=== PATIENT | female | born 1945 | race Caucasian/White ===

== ENCOUNTER 2019-12-16 06:00 | Outpatient (RCR) | payer MEDICARE, MEDICAID, SELFPAY | END 2020-01-12 23:59 | disposition home or self-care (01) | LOC: TPT 06:00 | PROVIDERS: Family Provider Family Medicine; PCP Family Medicine; Referring Provider Family Medicine; Visit Provider Family Medicine | DX: M54.5 Low back pain (principal) | CPT/HCPCS: 97110; 97161; 97530; G0283 ==

== ENCOUNTER 2020-01-22 18:14 | Emergency (ER) | payer MEDICARE, MEDICAID, SELFPAY ==
[2020-01-22 18:21] VITALS: BP 136/77; PULSE 80; RESP 18; TEMP 37.1; O2SAT 94; BMI 25.0
--- NOTE | 2020-01-22 18:41 | W.ED.BACK ---
HPI - Back Pain/Injury General: Chief Complaint: Back Pain/Injury Stated Complaint: LOWER BACK PAIN Time Seen by Provider: 01/22/20 18:21 History of Present Illness: HPI Narrative: Patient complains of back pain chronic times last few years she had and today she bent down to feed her cat and she felt a pain in her back and she had a hard time standing up. Says it it hurts in her low back lumbar area and radiates out to the right. Hurts to stand up to walk to lift anything. She called ambulance today to come bring her in. Says she needs some pain medicine. Has never had x-rays. Has had a shot of steroid from Dr. Isaac chin in [facility]. MD elicited complaint: back pain Pertinent past history: prior back pain Onset (ago): hour(s) Timing: constant Severity: moderate Similar Symptoms Previously: Yes Quality: sharp Location: lumbar spine Radiation: other (Right flank area) Exacerbating factors: movement, walking and lifting Relieving factors: immobilization Context: turning/twisting Associated symptoms: Reports no associated symptoms; Deny abdominal pain, chills, fever(s), nausea or vomiting Treatments prior to arrival: NSAIDS, acetaminophen and prescription analgesics Review of Systems Const: Denies: fever, chills or body aches Eyes: Denies: change in vision or blurry vision ENMT: Denies: throat pain or nasal congestion Card: Denies: chest pain or shortness of breath on exertion Resp: Denies: shortness of breath, productive cough or non-productive cough GI: Denies: abdominal pain, nausea or vomiting Musc: Reports: back pain; Denies: extremity pain Skin/Breast: Denies: rash Neuro: Denies: headache Psych: Denies: anxiety or depression Joseph/Lymph: Denies: easy bruising PFSH ED PFSH: Social History Smoking and tobacco status: former smoker Physical Exam Const: COMMON NORMALS: no apparent distress, average body habitus and oriented x3 HENMT: COMMON NORMALS: normocephalic HEAD & SCALP: normal to inspection and normocephalic FACE & SINUS: normal facial exam Eye: COMMON NORMALS: conjunctivae normal GENERAL EYE: normal appearance of both eyes CONJUNCTIVA: Yes conjunctivae normal Neck/C-Spine: COMMON NORMALS: no JVD Chest: COMMONS NORMALS: inspection of chest normal Resp: COMMON NORMALS: normal respiratory effort and clear to auscultation bilaterally AUSCULTATION: clear to auscultation bilaterally Cardio: COMMON NORMALS: no JVD, regular rate and regular rhythm RATE: regular rate RHYTHM: regular rhythm GI: COMMON NORMALS: normal to inspection, nondistended, normoactive bowel sounds Back/Pelvis: LUMBAR SPINE/LOWER BACK: Yes normal to inspection, Yes pain with ROM, No lumbar spinal tenderness and Yes straight leg raise positive right Extremity: COMMON NORMALS: normal to inspection and full ROM Neuro: COMMON NORMALS: oriented x3 Course Vital Signs: Vital signs: Vital Signs Temperature 98.7 F 01/22/20 18:21 Pulse Rate 80 01/22/20 18:21 Respiratory Rate 18 01/22/20 18:21 Blood Pressure 136/77 01/22/20 18:21 Pulse Oximetry 94 01/22/20 18:21 Coding Level of Care Code ED [employer]ation Supervisor for Carrie Boles
--- NOTE | 2020-01-22 18:49 | XRR_ITS ---
PROCEDURE INFORMATION: Exam: XR Lumbosacral Spine, 2 or 3 Views Exam date and time: 01/22/2020 7:31 PM Age: 74 years old Clinical indication: Low back pain; Additional info: Pain/injury TECHNIQUE: Imaging protocol: XR of the lumbosacral spine, 2 or 3 views. COMPARISON: CR Hip 2-3v RIGHT wwo Pelv* [id number] 08/03/2019 3:39 PM FINDINGS: Vertebrae: Grade 1 anterior non-spondylitic spondylolisthesis of L4 on L5 with central spinal stenosis and prominent facet degenerative changes. Low density bone consistent with osteopenia/osteoporosis. Partial sacralization of the left portion of L5 with unilateral left-sided articulation which can be a source of chronic low back pain. Vasculature: Calcification of the abdominal aorta and/or iliac arteries consistent with atherosclerotic vessel disease. Soft tissues: Normal. XR/XR lumbar spine 2-3V* [id number] IMPRESSION: 1. Grade 1 anterior non-spondylitic spondylolisthesis of L4 on L5 with central spinal stenosis and prominent facet degenerative changes. 2. Low density bone consistent with osteopenia/osteoporosis. 3. Partial sacralization of the left portion of L5 with unilateral left-sided articulation which can be a source of chronic low back pain. 4. No acute findings. 5. If pain persists, CT may be helpful to rule out occult pathology if clinically indicated.
[2020-01-22] MEDS: orphenadrine 30 mg/mL Inj 2 mL 60 MG IM (19:06)
[2020-01-22] MEDS: ketorolac 60 mg/2 mL INJ IM (19:07)
[2020-01-22 19:15] VITALS: BP 128/84; PULSE 84; RESP 18; O2SAT 93
[2020-01-22] MEDS: HYDROcodone-acetaminophen 5-325 mg Tablet 1 TAB PO (20:02)
[2020-01-22 20:10] VITALS: BP 151/96; PULSE 74; RESP 18; O2SAT 94
== END 2020-01-22 20:11 | disposition home or self-care (01) ==
PROVIDERS: Emergency Provider Nurse Practitioner Family; Family Provider Family Medicine; PCP Family Medicine
DX: M54.5 Low back pain (principal); G89.29 Other chronic pain; Z79.01 Long term (current) use of anticoagulants; Z87.891 Personal history of nicotine dependence
CPT/HCPCS: 12345; 72100; 96372; 99281; 99283; J1885; J2360

== ENCOUNTER → 2020-02-23 09:56 | Outpatient (BNVA) | payer MEDICARE, MEDICAID, SELFPAY | PROVIDERS: Family Provider Family Medicine; PCP Family Medicine; Visit Provider Internal Medicine Rheumatology | DX: Z79.899 Other long term (current) drug therapy (principal); L93.0 Discoid lupus erythematosus; M81.0 Age-related osteoporosis without current pathological fracture | CPT/HCPCS: 36415; 80076; 82310; 82565; 85025; 85651; 86140 ==

== ENCOUNTER 2020-03-23 10:57 | Outpatient (CLI) | payer MEDICARE, MEDICAID, SELFPAY ==
[2020-03-23 11:20] VITALS: BP 116/80; PULSE 72; RESP 16; TEMP 36.8
[2020-03-23] MEDS: denosumab 60 mg SDV SUBCUT (11:38)
--- NOTE | 2020-03-23 11:49 | PC.NURSE ---
pt states she is an hour late due to AC issues at her home. Pt verbalizes displeasure with lab orders and being stuck.
[2020-03-23 11:50] VITALS: BP 123/81; PULSE 74; TEMP 36.8
== END 2020-03-23 10:58 | disposition home or self-care (01) ==
LOC: RHEOACUTE 10:58
PROVIDERS: Family Provider Family Medicine; PCP Family Medicine; Visit Provider Internal Medicine Rheumatology
DX: Z79.899 Other long term (current) drug therapy (principal); M81.0 Age-related osteoporosis without current pathological fracture; R79.89 Other specified abnormal findings of blood chemistry
CPT/HCPCS: 36415; 82310; 83970; 96372; J0897

== ENCOUNTER 2020-07-05 09:14 | Emergency (ER) | payer MEDICARE, MEDICAID, SELFPAY ==
[2020-07-05 09:18] VITALS: BP 158/83; PULSE 81; RESP 20; TEMP 37.5; O2SAT 86; BMI 26.6
[2020-07-05 09:27] VITALS: BP 158/83; PULSE 80; RESP 20; O2SAT 96
--- NOTE | 2020-07-05 09:36 | CT_ITS ---
WS: [id number] CT CERVICAL TRAUMA TECHNIQUE: Noncontrast CT of the cervical spine with coronal and sagittal reformatted images. CLINICAL INFORMATION: fall COMPARISON: None. DLP: 496.[address] scans at [facility] use at least one of these dose optimization techniques: automat ed exposure control; mA and/or kV adjustment per patient size (includes targeted exams where dose is matched to clinical indication); or iterative reconstruction. FINDINGS: Exaggeration of the normal cervical lordosis. Moderate spondylitic changes. Normal craniocervical nannette ction. Normal C1-C2 articulation. Dens is normal in appearance. Normal occipital condyles. No high-gr skye spinal canal narrowing. Normal C1 ring. No evidence of acute fracture or dislocation. Slight ante rolisthesis C3 on C4, C4 on C5, and C5 on C6. Slight anterolisthesis C6 on C7. Mild disc bulging cer vical spine with mild to moderate central canal stenosis C4-C5 C5-C6 and C6-C7. Multilevel bony jonh inal narrowing. Partially visualized chronic appearing compression in the upper thoracic spine at T3 Calcified right thyroid nodule measuring 11 mm. Small nodules in the thyroid. This can be followed up with ultrasound on an elective basis. CT/CT cervical spin wo con* [id number] IMPRESSION: 1. Exaggeration the normal cervical lordosis with moderate spondylitic changes . 2. No acute fractures. 3. Mild to moderate central canal stenosis C4-C6 due to slight anterolisthesis chronic disc osteophyte complexes. Notified LINDA Zhong at 07/05/2020 10:39 AM.
--- NOTE | 2020-07-05 09:36 | CT_ITS ---
WS: [id number] CT HEAD TECHNIQUE: Noncontrast CT of the head obtained from the skullbase to the vertex. CLINICAL INFORMATION: fall, blood thinners COMPARISON: None. DLP: 1031.[address] scans at [facility] use at least one of these dose optimization techniques: automat ed exposure control; mA and/or kV adjustment per patient size (includes targeted exams where dose is matched to clinical indication); or iterative reconstruction. FINDINGS: No evidence of intracranial hemorrhage or mass effect. Ventricular system and basal cisterns are bates nt. Mild small vessel changes with moderate parenchymal volume loss. Chronic lacunar infarcts in the basal ganglia. No extra-axial fluid collections. No evidence of mass or mass effect. Normal tafoya-whit e differentiation. Chronic opacification of the sphenoid sinuses. Right scalp hematoma overlying the right parietal calv arium. No fractures. CT/CT head wo con* [id number] IMPRESSION: 1. No evidence of intracranial hemorrhage or mass effect. 2. Moderate small vessel changes with mild parenchymal volume loss. Intracrani al vascular calcification. 3. Right scalp hematoma overlying the right parietal calvarium. No fractures. 4. No acute intracranial findings. Notified LINDA Zhong at 07/05/2020 10:35 AM.
--- NOTE | 2020-07-05 09:36 | CT_ITS ---
WS: [id number] CT THORACIC SPINE TECHNIQUE: Noncontrast CT of the thoracic spine with coronal and sagittal reformatted images. CLINICAL INFORMATION: fall COMPARISON: None. DLP: 2043.[address] scans at [facility] use at least one of these dose optimization techniques: automat ed exposure control; mA and/or kV adjustment per patient size (includes targeted exams where dose is matched to clinical indication); or iterative reconstruction. FINDINGS: Moderate thoracic kyphosis. Osteopenia. Compression fractures with anterior wedging at T3, T6, and T1 1. Mild retropulsion of the posterior superior cortex at T11 with mild central canal stenosis. Compre ssion inferior endplate at T6 appears chronic. Biconcave compression with anterior wedging at T3 with loss of approximately 50% vertebral body height centrally and mild retropulsion of the posterior inf erior cortex results in mild central canal stenosis. T11 fracture has a more acute to subacute appearance with loss of approximately 50% vertebral body he ight centrally and persistent fracture line in the superior endplate. Findings can be further evaluat ed with MRI. Osteopenia. Large esophageal hiatal hernia. Subsegmental atelectasis right lower lobe. Small right pl eural effusion. CT/CT thoracic spin wo con* [id number] IMPRESSION: 1. Moderate thoracic kyphosis with osteopenia. 2. Compression fracture with anterior wedging T11 is age indeterminant but may be acute to subacute with persistent visualized fracture line in the superior cortex. Mild central canal stenosis. 3. Additional compression fractures at T3 and T6 likely chronic. Findings can be further evaluated with MRI. 4. Large esophageal hiatal hernia. Attempted notification LINDA Zhong at 07/05/2020 10:53 AM.
--- NOTE | 2020-07-05 09:40 | W.ED.FALL ---
HPI - Fall General: Chief Complaint: Fall Stated Complaint: FALL YESTERDAY MED BACK BILAT RIB PAIN Time Seen by Provider: 07/05/20 09:18 History of Present Illness: HPI Narrative: Patient states she fell backwards trying get into a van yesterday striking pavement said she hit the back of her head and her low back complains about the midthoracic and upper back pain. Denies any head pain. Patient is on blood thinners and has a history of chronic back pain MD complaint: fall Onset (ago): day(s) Fall from: standing Fall witnessed: yes, by bystander Place fall occurred: home (Get into the van) Loss of consciousness: None Prolonged down time: no Symptoms prior to fall: none Context: tripped/slipped Location of injury: back Quality: aching Associated symptoms-after fall: Reports no associated symptoms; Denies abdominal pain, chest pain or headache(s) Review of Systems Const: Denies: fever(s), chills or body aches Eyes: Denies: change in vision or blurry vision ENMT: Denies: throat pain or nasal congestion Card: Denies: chest pain or dyspnea on exertion Resp: Denies: dyspnea, productive cough or non-productive cough GI: Denies: abdominal pain, nausea or vomiting Musc: Reports: back pain; Denies: extremity pain Skin/Breast: Denies: rash Neuro: Denies: headache(s) Psych: Denies: anxiety or depression Joseph/Lymph: Denies: easy bruising PFS ED PFSH: Medical History (Updated 07/05/20 @ 10:55 by LINDA Zhong) Discoid lupus erythematosus High risk medication use Immunization counseling Osteoporosis SLE (systemic lupus erythematosus) Surgical History History of hip surgery History of tubal ligation Family History Other Diabetes Hypertension Stroke Denies family history of Rheumatoid arthritis Chronic kidney disease (CKD) Systemic lupus erythematosus (SLE) in adult Cancer Social History Smoking and tobacco status: former smoker Alcohol intake: never History of recent travel: No Physical Exam Const: COMMON NORMALS: no acute distress, average body habitus and patient oriented x3 HENMT: COMMON NORMALS: normocephalic HEAD & SCALP: normal to inspection and normocephalic FACE & SINUS: normal facial exam Eye: COMMON NORMALS: conjunctivae normal GENERAL EYE: appearance normal, both eyes and all related structures CONJUNCTIVA: Yes conjunctivae normal Neck/C-Spine: COMMON NORMALS: no JVD Chest: COMMONS NORMALS: normal inspection of the chest Resp: COMMON NORMALS: normal respiratory effort and clear to auscultation bilaterally AUSCULTATION: clear to auscultation bilaterally Cardio: COMMON NORMALS: no JVD, regular rate and regular rhythm RATE: regular rate RHYTHM: regular rhythm GI: COMMON NORMALS: Normal to inspection, nondistended, normoactive bowel sounds present Back/Pelvis: THORACIC SPINE/UPPER BACK: Yes thoracic spinal tenderness Extremity: COMMON NORMALS: normal to inspection and full ROM Neuro: COMMON NORMALS: patient oriented x3 Skin: NARRATIVE SKIN EXAM: No abrasions or bruising noted to her back Course Vital Signs: Vital signs: Vital Signs Temperature 98.4 F 07/05/20 11:04 Pulse Rate 78 07/05/20 11:04 Respiratory Rate 20 H 07/05/20 11:04 Blood Pressure 158/83 07/05/20 11:04 Pulse Oximetry 96 07/05/20 11:04 MDM - Fall MDM Narrative: Medical decision making narrative: Shared x-ray results with patient discussed medication use patient patient is asking for muscle active said that she has spasms and would like to have something for that. Talked about her degenerative disc disease. Patient follow-up with family medical provider as needed. Discharge Plan Discharge Patient Disposition: Home Clinical Impression: Fall Qualifiers: Encounter type: initial encounter Qualified Code(s): W19.XXXA - Unspecified fall, initial encounter Hematoma of scalp Qualifiers: Encounter type: initial encounter Qualified Code(s): S00.03XA - Contusion of scalp, initial encounter Condition: Stable Prescriptions: New cyclobenzaprine 5 mg tablet 5 mg PO TID PRN (Reason: muscle spasm) Qty: 10 RF: 0 No Action Dexilant 60 mg capsule,biphase delayed releas 60 mg PO DAILY RF: 0 cyclobenzaprine 10 mg tablet 10 mg PO TID PRNRF: 0 meclizine 25 mg tablet 25 mg PO DAILY PRNRF: 0 warfarin 2 mg tablet 3 mg PO DAILY RF: 0 cholecalciferol (vitamin D3) 50 mcg (2,000 unit) capsule 50 mcg PO DAILY RF: 0 acetaminophen [Tylenol Extra Strength] 500 mg tablet 500 mg PO TID PRNRF: 0 hydroxychloroquine 200 mg tablet 200 mg PO BID Qty: 60 RF: 3 Discharge Orders: Discharge Order (Routine); Ordered 07/05/20 Ordered By: Adam Singh Referrals: Viraj Gray MD [Primary Care Provider] - Discharge Diet: Advance as tolerated Discharge Activity: Increase activity as tolerated Patient Instructions: Contusion in Adults (ED) Activity Restrictions/Additional Instructions: Follow-up with medical provider as directed. Take medications as prescribed. Return to the ER or your medical provider if condition worsens. Please read and understand discharge instructions. If any questions ask please. Discharge Date/Time: 07/05/20 11:08 Coding Level of Care Code ED Research Program Coordinator for Carrie Fwd Exam Comprehensive
[2020-07-05] MEDS: ondansetron 2 mg/ML SDV 2 mL 4 MG IVP (09:50)
[2020-07-05] MEDS: ketorolac 30 mg/mL INJ IVP (09:50)
[2020-07-05 11:04] VITALS: BP 158/83; PULSE 78; RESP 20; TEMP 36.9; O2SAT 96
== END 2020-07-05 11:08 | disposition home or self-care (01) ==
PROVIDERS: Emergency Provider Nurse Practitioner Family; Family Provider Family Medicine; PCP Family Medicine
DX: S00.03XA Contusion of scalp, initial encounter (principal); Z79.01 Long term (current) use of anticoagulants; Z87.891 Personal history of nicotine dependence; V58.4XXA Person boarding or alighting a pick-up truck or van injured in noncollision transport accident, initial encounter
CPT/HCPCS: 12345; 70450; 72125; 72128; 96374; 96375; 99282; 99284; J1885; J2405

== ENCOUNTER → 2020-08-29 10:34 | Outpatient (BNVA) | payer MEDICARE, MEDICAID, SELFPAY | PROVIDERS: Family Provider Family Medicine; PCP Family Medicine; Visit Provider Internal Medicine Rheumatology | DX: L93.0 Discoid lupus erythematosus (principal); M81.0 Age-related osteoporosis without current pathological fracture; Z79.899 Other long term (current) drug therapy; Z87.891 Personal history of nicotine dependence | CPT/HCPCS: 36415; 80076; 81001; 82310; 82565; 82570; 84156; 85025; 87086; 99214 ==

== ENCOUNTER → 2020-10-17 13:44 | Outpatient (BNVA) | payer MEDICARE, MEDICAID, SELFPAY | PROVIDERS: Family Provider Family Medicine; PCP Family Medicine; Visit Provider Internal Medicine Rheumatology | DX: M81.0 Age-related osteoporosis without current pathological fracture (principal); Z79.899 Other long term (current) drug therapy; R29.898 Other symptoms and signs involving the musculoskeletal system | CPT/HCPCS: 36415; 82310; 82550; 82565 ==

== ENCOUNTER 2020-11-02 08:00 | Outpatient (CLI) | payer MEDICARE, MEDICAID, SELFPAY | END 2020-11-02 08:01 | disposition home or self-care (01) | LOC: RHEOACUTE 11-04 13:09 | PROVIDERS: Family Provider Family Medicine; PCP Family Medicine; Visit Provider Internal Medicine Rheumatology | DX: N39.0 Urinary tract infection, site not specified (principal) | CPT/HCPCS: 81001 ==

== ENCOUNTER → 2020-12-19 11:42 | Outpatient (BNVA) | payer MEDICARE, MEDICAID, SELFPAY | PROVIDERS: Family Provider Family Medicine; PCP Family Medicine; Visit Provider Internal Medicine Rheumatology | DX: L93.0 Discoid lupus erythematosus (principal); Z79.899 Other long term (current) drug therapy; M19.90 Unspecified osteoarthritis, unspecified site | CPT/HCPCS: 36415; 80076; 82565; 85025; 86140 ==

== ENCOUNTER → 2021-01-02 15:20 | Outpatient (BNVA) | payer MEDICARE, MEDICAID, SELFPAY | PROVIDERS: Family Provider Family Medicine; PCP Family Medicine; Visit Provider Internal Medicine Rheumatology | DX: L93.0 Discoid lupus erythematosus (principal); Z79.899 Other long term (current) drug therapy; M81.0 Age-related osteoporosis without current pathological fracture; Z87.891 Personal history of nicotine dependence | CPT/HCPCS: 99214 ==